=== PATIENT | female | born 1970 | race Caucasian/White ===

== ENCOUNTER 2023-07-03 12:11 | Emergency (ER) | payer OTHER ==
[~2023-07-03] VITALS: Ht 144.8 cm; Wt 75.0 kg
[2023-07-03 12:18] VITALS: O2SAT 99
[2023-07-03] MEDS ORDERED: KETOROLAC 60MG/2ML VIAL IM ONE (12:45)
[2023-07-03] MEDS ORDERED: MORPHINE SULFATE 4 MG/ML CPJ (NOT FOR IM USE) IV ONE (13:00)
[2023-07-03 16:48] VITALS: BP 151/71; PULSE 64; RESP 16; TEMP 98.8
== END 2023-07-03 17:08 | disposition home or self-care (01) ==
LOC: ER 13:26
DX: S63.391A Traumatic rupture of other ligament of right wrist, initial encounter (principal); M79.601 Pain in right arm; M25.531 Pain in right wrist; V49.59XA Passenger injured in collision with other motor vehicles in traffic accident, initial encounter; Y93.89 Activity, other specified; Y92.89 Other specified places as the place of occurrence of the external cause; Y99.8 Other external cause status
CPT/HCPCS: 73030; 73090; 73110; 73130; 29125; 96372; 96374; 99285; J1885; J2270; Z7610 ×2